=== PATIENT | female | born 1985 | race Caucasian/White ===

== ENCOUNTER 2019-04-18 14:30 | Emergency (ER) | payer OTHER ==
[2019-04-18 14:42] VITALS: BP 146/90
--- NOTE | 2019-04-18 14:46 | ED Physician Documentation ---
History of Present Illness - Stated complaint Stated Complaint: FEMALE - Chief complaint Chief Complaint: Abd Pain - History obtained from History obtained from: Patient - History of Present Illness Timing: Today - Additonal information Additional information: Patient is a 33-year-old female presenting with concern for possibly retained tampon. Patient reports that she has history of ovarian cysts and recent concern for endometriosis. Patient also had Mirena removed on Saturday of this week, about 6 days ago.Patient reports that she has had heavy bleeding and cramping including back pain since removal, which was expected. However, patient was awoke this morning by her small child who was sick and in that stressful time, patient is unsure if she removed the tampon she placed in the middle the night last night or not. Patient then did place a new tampon this morning, which she has subsequently removed and is only wearing a menstrual pad. Patient otherwise denies abnormal vaginal discharge, abdominal pain, vomiting, fever or other concerns. No other improving or worsening factors to her symptoms noted. Review of Systems Constitutional: denies: Fever GI: denies: Abdominal Pain : reports: Vaginal bleeding PD PAST MEDICAL HISTORY - Past Medical History Past Medical History: No - Past Surgical History Past Surgical History: No - Present Medications Home Medications: Ambulatory Orders Medication Instructions Recorded Confirmed No Known Home Medications 04/18/19 04/18/19 - Allergies Allergies/Adverse Reactions: Allergies Allergy/AdvReac Type Severity Reaction Status Date / Time benzonatate Allergy Rash Verified 04/18/19 14:42 [From Hussein Fonseca] PD ED PE NORMAL - Vitals Vital signs reviewed: Yes (Anxious with slightly elevated pulse and BP) - General General: Alert and oriented X 3, Well developed/nourished - HEENT HEENT: Atraumatic - Cardiac Cardiac: No murmur. No: RRR (Slightly tachycardic) - Respiratory Respiratory: No respiratory distress, Clear bilaterally - Abdomen Abdomen: Normal bowel sounds, Soft, Non tender, Non distended - Female Female : Physical Science Technician present, Other (External genitalia within normal limits. Speculum exam did not find evidence of retained tampon or other foreign body. No purulent discharge or other abnormalities found. Very mild amount of bright red blood in vaginal vault. Cervix unremarkable.) - Derm Derm: Normal color, Warm and dry, No rash - Extremities Extremities: No deformity, No tenderness to palpate - Neuro Neuro: Alert and oriented X 3, No motor deficit, No sensory deficit - Psych Psych: Normal mood, Normal affect Results - Vitals Vitals: Vital Signs - 24 hr 04/18/19 14:36 Temperature 36.1 C L Heart Rate 106 H Respiratory 14 Rate Blood Pressure 146/90 H O2 Saturation 100 Oxygen O2 Source Room air PD MEDICAL DECISION MAKING - ED course Complexity details: re-evaluated patient, considered differential, d/w patient, d/w family ED course: Performed exam which did not find evidence of retained tampon or other foreign body. Additionally, no other signs of post procedure complication from removal of Mirena or signs of infection. Based on complaints and physical exam, do not find evidence that would indicate other pelvic, intra-abdominal, or systemic illness or complication at this time. Discussed supportive cares, return precautions, and appropriate follow-up. Departure - Departure Disposition: 01 Home, Self Care Clinical Impression: Dysmenorrhea Condition: Good Instructions: ED Cramping Menstrual Follow-Up: SHABBIR HERRERA MD [Primary Care Provider] - Within 3 Days Comments: Please follow-up as scheduled with SERVICE PARTS COORDINATOR next week. May use ibuprofen/Tylenol, heating pad as needed for relief of menstrual cramping and pain. Recommend use of menstrual pads as opposed to tampons at this time. Return to the ED sooner if experience worsening symptoms or other concerns.
== END 2019-04-18 15:08 | disposition home or self-care (01) ==
LOC: ED 14:30
DX: N94.6 Dysmenorrhea, unspecified (principal)
CPT/HCPCS: 99283

== ENCOUNTER 2019-12-29 15:02 | Outpatient (CLI) | payer OTHER ==
[2019-12-29 15:40] LABS: BASOPHILS % (AUTO) 0.4 %; EOSINOPHILS % (AUTO) 0.5 %; HGB - HEMOGLOBIN 13.8 g/dL (12.0-16.0); LYMPHOCYTES # (AUTO) 2.3 10^3/uL (1.5-3.5); MEAN CORPUSCULAR HEMOGLOBIN 32.3 pg (27.0-31.0); MEAN CORPUSCULAR HGB CONC 33.8 g/dL (32.0-36.0); MEAN CORPUSCULAR VOLUME 95.6 fL (81.0-99.0); MEAN PLATELET VOLUME 9.2 fL (7.9-10.8); MONOCYTES # (AUTO) 0.5 10^3/uL (0.0-1.0); NEUTROPHILS # (AUTO) 5.6 10^3/uL (1.5-6.6); NEUTROPHILS % (AUTO) 65.7 %; PLT - PLATELET COUNT 252 10^3/uL (130-450); RED BLOOD COUNT 4.27 10^6/uL (4.20-5.40); RED CELL DISTRIBUTION WIDTH 11.8 % (12.0-15.0); WHITE BLOOD COUNT 8.4 x10^3/uL (4.8-10.8)
== END 2019-12-29 15:03 | disposition home or self-care (01) ==
LOC: LAB 15:02
PROVIDERS: ATTEND Obstetrics & Gynecology
DX: Z01.812 Encounter for preprocedural laboratory examination (principal); R10.2 Pelvic and perineal pain
CPT/HCPCS: 36415; 85025; 86850; 86900; 86901

== ENCOUNTER 2019-12-31 10:42 | Day surgery (SDC) | payer OTHER ==
[~2019-12-31 10:42] MED LIST: BUPIVACAINE 0.25% PF 30 ML VIAL ONE; METHYLENE BLUE 0.5% 50 MG/10 ML AMPULE ONE; SILVER NITRATE APPLICATOR TOP ONE
[2019-12-31] MEDS ORDERED: DEXAMETHASONE 4 MG/ML VIAL IVP ONE (10:43)
[2019-12-31] MEDS ORDERED: ACETAMINOPHEN 1,000 MG/100 ML 100 ML IV ONE (10:43)
[2019-12-31] MEDS ORDERED: PROPOFOL 200 MG/20 ML VIAL IVP ONE (10:43)
[2019-12-31] MEDS ORDERED: KETOROLAC 30 MG/ML VIAL IVP ONE (10:43)
[2019-12-31] MEDS ORDERED: LIDOCAINE-MPF 2% 5 ML VIAL IM ONE (10:43)
[2019-12-31] MEDS ORDERED: MIDAZOLAM 2 MG/2 ML VIAL IVP ONE (10:43)
[2019-12-31] MEDS ORDERED: NEOSTIGMINE 1 MG/1 ML 10 ML MDV IVP ONE (10:43)
[2019-12-31] MEDS ORDERED: ROCURONIUM 50 MG/5 ML VIAL IVP ONE (10:43)
[2019-12-31] MEDS ORDERED: fentaNYL 100 MCG/2 ML VIAL IVP ONE (10:43)
[2019-12-31] MEDS ORDERED: ONDANSETRON 4 MG/2 ML VIAL IVP ONE (10:43)
[2019-12-31] MEDS ORDERED: LACTATED RINGERS 1,000 ML IV ONE (10:53)
[2019-12-31 11:20] LABS: HCG UR QUAL NEGATIVE
--- NOTE | 2019-12-31 11:25 | ANESTHESIA ---
Pre-Anesthesia VS, & Labs - Diagnosis Chronic pelvic pain - Procedure Diagnostic Laparoscopy Vital Signs: Temp Pulse Resp BP Pulse Ox 36.5 C 94 16 128/92 H 99 12/31/19 10:53 12/31/19 10:53 12/31/19 10:53 12/31/19 10:53 12/31/19 10:53 Height 5 ft 9 in Weight (kg) 72.7 kg Body Mass Index 25.5 - NPO >8 hours - Is Patient ?: No Home Medications and Allergies Home Medications: Ambulatory Orders Albuterol Sulfate [Proair Hfa Inhaler] 1 - 2 puffs INH Q4H PRN 12/22/19 Cyclobenzaprine [Flexeril] 10 mg PO TID PRN 12/22/19 Ibuprofen [Motrin] 600 mg PO Q6H PRN 12/22/19 Psyllium Husk [Metamucil] 660 gm PO DAILY 12/22/19 Albuterol Sulfate [Proair Hfa Inhaler] 1 - 2 puffs INH Q4H PRN 12/22/19 Cyclobenzaprine [Flexeril] 10 mg PO TID PRN 12/22/19 Ibuprofen [Motrin] 600 mg PO Q6H PRN 12/22/19 Psyllium Husk [Metamucil] 660 gm PO DAILY 12/22/19 Allergies/Adverse Reactions: Allergies Allergy/AdvReac Type Severity Reaction Status Date / Time benzonatate Allergy Rash Verified 12/31/19 11:08 [From Hussein Fonseca] Anes History & Medical History - Anesthetic History Anesthesia Complications: reports: No previous complications - Medical History Cardiovascular: reports: None Pulmonary: reports: Other (seasonal allergies) Gastrointestinal: reports: None Urinary: reports: None Musculoskeletal: reports: None Endocrine/Autoimmune: reports: None Skin: reports: None Smoking Status: Never smoker Exam General: Alert Dental: WNL Mouth Opening: Greater than 4 Fingerbreadths Mallampati classification: II Thyromental Distance: greater than 6 cm Respiratory: Lungs clear Cardiovascular: Regular rate, Normal S1, Normal S2 Plan Anesthesia Type: General Consent for Procedure(s) Verified and Reviewed: Yes Code Status: Attempt Resuscitation ASA classification: 1-Healthy patient Is this case an emergency?: No
[2019-12-31] MEDS ORDERED: BUPIVACAINE 0.25% PF 30 ML VIAL SUBQ ONE (13:00)
[2019-12-31] MEDS ORDERED: ONDANSETRON 4 MG/2 ML VIAL IVP PRN (13:14)
[2019-12-31] MEDS ORDERED: oxyCODONE 5 MG TABLET PO PRN (13:14)
[2019-12-31] MEDS ORDERED: HYDROmorphone 0.5 MG/0.5 ML SYRINGE IVP PRN (13:14)
--- NOTE | 2019-12-31 13:19 | OPERATIVE REPORT ---
Operative Report - General Procedure Date: 12/31/19 Planned Procedure: colposcopy, diagnostic laparoscopy, possible lysis of adhesions, excision or fulguration of endometriosis, other indicated procedures Pre-Op Diagnosis: 1. LGSIL, HPV positive pap 2. Chronic pelvic pain Procedure Performed: 1. colposcopy with biopsy and endocervical curettage 2. diagnostic laparoscopy 3. excision of peritoneal endometriosis, left pelvic sidewall 4. fulguration of peritoneal endometriosis, right pelvic sidewall Post Op Diagnosis: 1. LGSIL pap, r/o dysplasia 2. Endometriosis - Procedure Note Primary Surgeon: Rocio Pollock Secondary Surgeon: Lashonda Serra Anesthesia Provider: Shayla Bobby Anesthesia Technique: General ET tube Pathology: 1. cervix bx 5 o'clock 2. cervix bx 1 o'clock 3. ECC 4. peritoneal biopsy, left pelvic sidewall IV Fluids (mL): 600 Estimated Blood Loss (mL): 5 Urine Output (mL): 75 Indications: 1. LGSIL pap 2. chronic pelvic pain Findings: Small anteverted uterus. Colposcopy with faint aceto-white epithelium at 5 and 1 o'clock, TZ receded into os at 9 o'clock, bx taken x 2 and ECC performed. L/s with normal liver edge and grossly normal bowel. Normal appendix. Globular uterus with no mass. Normal bilateral fallopian tubes with small simple cyst at fimbria of right tube. Normal bilateral ovaries, mobile with no adhesions. White scar suggestive of old endometriosis on left uterosacral ligament. Purple vesicle in right ovarian fossa suggestive of endometriosis, overlying ureter, not biopsied or fulgurated. Powder-burn lesions consistent with endometriosis along right pelvic sidewall, fulgurated with cautery. Small purple vesicle on left pelvic peritoneum just cephalad to insertion of round ligament suggestive of endometriosis, excised sharply and base cauterized. Complications: None - Other Other Information/Narrative: After informed consent was assured, the patient was taken to the operating room where anesthesia was induced. Pt was placed in low dorsal lithotomy. An exam under anesthesia revealed the findings above. A surgical timeout was performed. A speculum was inserted allowing visualization of the cervix. Acetic acid 5% used to coat the cervix. Faint acetowhite epithelium noted at 1 and 5 o'clock, biopsies taken and collected in formalin. Transformation zone receded into os at 9 o'clock, endocervical curettage performed with curette and collected with cytobrush in formalin. Silver nitrate applied to biopsy sites, and speculum removed. The patient was prepped and draped in the usual sterile fashion. A speculum was inserted into the vagina and a tenaculum was placed on the anterior lip of the cervix. The uterus sounded to 8 cm. A Humi uterine manipulator was inserted through the os and tip inflated with 8 mL of air. A king catheter was inserted. The speculum was removed. Gloves were changed and attention turned to the abdomine. 0.25% Marcaine plain was injected at the umbilicus. A vertical incision was made below the umbilicus and a trochar was inserted under direct visualization with the camera. The camera was introduced through the port and confirmed entry into the abdominal cavity; the abdomen was then insufflated. Inspection of the bowel immediately under the entry site revealed no injury to the viscera. Marcaine was then injected on the left lateral side 3 cm superior and medial to the anterior superior iliac spine. An incision was made and a 5 mm port was placed through the incision under visualization with the laparoscope. One additional 5 mm port was placed in a similar fashion on the right. Survey of the abdomen and pelvis noted the findings listed above. The peritoneal lesion on the left pelvic sidewall was grasped with [place] forceps and excised with endoshears. The area of biopsy was cauterized with good hemostasis. The lesions on the right could not easily be grasped so they were fulgurated with the bipolar L-hook. The trochars were removed from the abdomen. The incisions were each closed with single interrupted buried sutures of 4-0 monocryl and covered with Dermabond skin adhesive. The uterine manipulator was removed from the cervix. A speculum was removed to visualize the cervix and it appeared hemostatic. All instrument and sponge counts were correct. The patient was awoken and extubated. The pt was taken to PACU in stable condition.
[2019-12-31] MEDS: HYDROmorphone 1 MG/ML CARPUJECT ONE ×4 (13:20→13:50)
[2019-12-31] MEDS ORDERED: oxyCODONE 5 MG TABLET ONE (14:20)
[2019-12-31] MEDS ORDERED: HYDROmorphone 0.5 MG/0.5 ML SYRINGE ONE (14:28)
[2019-12-31 14:30] VITALS: BP 124/77
== END 2019-12-31 10:43 | disposition home or self-care (01) ==
LOC: SDS 10:42
PROVIDERS: ATTEND Obstetrics & Gynecology
PROC: 0D5W4ZZ Destruction of Peritoneum, Percutaneous Endoscopic Approach (ICD-10-PCS; 2019-12-31)
PROC: 0UJH8ZZ Inspection of Vagina and Cul-de-sac, Via Natural or Artificial Opening Endoscopic (ICD-10-PCS; principal; 2019-12-31 12:00)
DX: R10.2 Pelvic and perineal pain (principal); N80.3 Endometriosis of pelvic peritoneum; N87.1 Moderate cervical dysplasia; Z87.891 Personal history of nicotine dependence
CPT/HCPCS: 81025